=== PATIENT | female | born 1960 ===

== ENCOUNTER → 2020-12-29 | Outpatient (CLI) | payer OTHER ==
--- NOTE | 2020-12-29 13:39 | RAD ---
EXAM: US left wrist dorsal DATE: 12/29/2020 11:28 AM COMPARISON: None INDICATION: Mass lesion, characterize and localize Reason: SWELLING OF LT WRIST / Spl. Instructions: / History: TECHNIQUE: Longitudinal and transverse imaging with intermittent Doppler sampling completed with atte ntion to the dorsal left wrist FINDINGS/ IMPRESSION: A few small echogenic foci are seen within the subcutaneous tissues of the dorsal left wrist may repr esent small lipomas. No discrete loculated fluid collection is seen. Electronically signed by: Sloan Levin MD (12/29/2020 1:37 PM) [id number]
== END ==
LOC: US 11:34
PROVIDERS: ATTEND Family Medicine
DX: M25.832 Other specified joint disorders, left wrist (principal); M25.432 Effusion, left wrist
CPT/HCPCS: 76881